=== PATIENT | female | born 1965 | race Caucasian/White ===

== ENCOUNTER 2022-04-29 14:48 | Emergency (ER) | payer OTHER, SELFPAY ==
--- NOTE | ~2022-04-29 | CT_ITS ---
EXAMINATION: CT HEAD WITHOUT CONTRAST CLINICAL INFORMATION: Headache. COMPARISON: None TECHNIQUE: Contiguous axial imaging was performed from the skull base to vertex without intravenous administration of contrast. This CT examination was performed using dose optimization techniques as appropriate, variously including the following: *Automated exposure control *Adjustment of mA and/or kV according to patient size (this includes techniques or standardized protocols for targeted exams where dose is matched to indication/reason for exam; i.e. extremities or head) *Use of iterative reconstruction technique DLP: 599 mGy-cm FINDINGS: There is no evidence of acute intracranial hemorrhage or territorial infarction. No abnormal mass-effect or midline shift is seen. Lau to white matter differentiation is well preserved. No extra axial fluid collections. The ventricles are normal in size and configuration. Dystrophic ossifications are noted in the basal ganglia. No additional abnormal attenuation within the brain parenchyma. The soft tissues and osseous structures are normal. The sinuses and mastoid air cells are clear. CT/CT head/brain wo IV con IMPRESSION: No acute intracranial pathology.
[2022-04-29 14:58] VITALS: BP 145/87; PULSE 88; RESP 16; TEMP 36.8; O2SAT 96; BMI 24.8
[2022-04-29 16:03] LABS: MANUAL DIFF FLAG NO
[2022-04-29 16:10] LABS: Basophils Percent Auto 0.3 % (0-2); Eosinophils Percent Auto 0.5 % (0-4); Hemoglobin 15.3 g/dl (12.0-16.0); Imm Gran Abs Auto 0.02 X10*3/uL (0.00-0.03); Imm Gran Pct Auto 0.3 % (0.0-0.4); Lymphocytes Absolute Auto 2.3 X10*3/uL (1.2-4.9); Lymphocytes Percent Auto 28.4 % (20-40); Mean Corpuscular Hemoglobin 29.3 pg (27.0-33.0); Mean Corpuscular Volume 86.2 fL (80.0-98.0); Mean Platelet Volume 9.9 fL (9.4-12.3); Monocytes Absolute Auto 0.5 X10*3/uL (0.1-1.2); Monocytes Percent Auto 6.1 % (2-11); Neutrophils Absolute Auto 5.2 x10*3/uL (2.0-8.3); Neutrophils Percent Auto 64.4 % (45-73); Platelet Count 255 X10*3/uL (160-400); Red Blood Count 5.22 X10*6/uL (4.20-5.50)
[2022-04-29 16:26] LABS: Anion Gap 14 (12-20); Blood Urea Nitrogen 25 mg/dL (9-16); Carbon Dioxide 25 mmol/L (22-29); Chloride 104 mmol/L (96-108); Creatinine Clr Calc Pharmacy 78.6; Estimated Glomerular Filt Rate > 60; Glucose Random 97 mg/dL (60-115); Potassium 4.1 mmol/L (3.3-5.1); Sodium 139 mmol/L (135-145)
[2022-04-29 16:29] VITALS: BP 142/92; PULSE 84; RESP 18; TEMP 36.8
--- NOTE | 2022-04-29 16:33 | ED.HA ---
HPI - Headache General Chief Complaint: Headache Stated Complaint: diabetic, bad headache. Time Seen by Provider: 04/29/22 16:32 Source: patient Mode of arrival: ambulatory Limitations: language barrier History of Present Illness HPI Narrative: 56-year-old female presents with unrelieved headache that is been present for approximately 2 months, but worsening since . States that she has nausea, and head pressure with dizziness. She does not report any trauma, or falls. Denies fevers, chills, loss of balance and weakness. MD elicited complaint: migraine Onset (ago): month(s) (2) Onset description: gradually Location: diffuse and generalized Severity: moderate Pain scale (0-10): 8 Quality & Timing: throbbing, constant, pressure, progressively worsening and similar to previous headaches Exacerbating factors: movement of head/neck, light and noise Relieving factors: nothing Associated symptoms: nausea, photophobia and sensitivity to sound Treatments prior to arrival: acetaminophen, ibuprofen and migraine medication ( [id number]) Related Data Previous Rx's Medication Instructions Recorded sumatriptan succinate 50 mg tablet See Rx Instructions PO .COMPLEX 04/29/22 (Imitrex) #12 tabs Allergies Allergy/AdvReac Type Severity Reaction Status Date / Time ceftriaxone [From Rocephin] Allergy Hives Verified 04/29/22 14:58 Review of Systems Review of Systems: Constitutional: No Fever, No Chills ENT/Mouth: No Ear Pain, No Hoarseness, No sore throat Eyes: No Eye Pain, No Swelling, No Redness, No Foreign Body Cardiovascular: No Chest Pain, No SOB Respiratory: No Cough, No Dyspnea Gastrointestinal: positive Nausea, No Vomiting, No Diarrhea, No abdominal Pain Genitourinary: No Dysuria, No Hematuria Musculoskeletal: No joint pain, No Myalgias, No Joint Swelling Skin: No Skin lacerations, No rash Neuro: positive Weakness, No Numbness, No Paresthesias, No Loss of Consciousness, positive Dizziness, positive Headache Yes all other systems are reviewed and are negative [facility] Past Medical History Attestation statement: The following information was validated with the patient. Source: old records reviewed Social History Social History Advance Directives: No Advance Directives Information Provided: No Physical Exam Vital Signs: Vital Signs: Last Vital Signs Temp 98.2 F 04/29/22 16:29 Pulse 84 04/29/22 16:29 Resp 18 04/29/22 16:29 BP 142/92 H 04/29/22 16:29 Pulse Ox 96 04/29/22 14:58 O2 Del Method 04/29/22 14:58 BMI result Body Mass Index 24.8 Appearance: Alert. Oriented X3. No acute distress. Eyes: Pupils equal, round and reactive to light. EOMI. Sclera nonicteric. No nystagmus. ENT: Pharynx normal. No mastoid tenderness. No nuchal rigidity. Full range of motion. No meningeal signs Neck: Normal inspection. Neck supple. CVS: Normal heart rate and rhythm. Pulses normal. Respiratory: No respiratory distress. Breath sounds normal. Abdomen: Soft and nontender. Skin: Skin warm and dry. Normal skin color. Normal skin turgor. Extremities: No lower extremity edema. moves all extremities against resistance. Gait well-balanced well coordinated. Neuro: No motor deficit. No sensory deficit. Cranial nerves 2-12 intact. Course Course Course Narrative: 56-year-old female presents with 2 months of headache, intermittent dizziness, weakness, photosensitivity, blurred vision and forehead pressure. States that she has been taking [id number] medications for migraines, Tylenol and Motrin with poor effect. Starting the pain is worsened with nausea. Patient has an allergy to Fioricet, has been treated for migraines in the past, and this headache feels similar to prior. NIH stroke scale is 0, Roberto Carlos coma Scale 15. No meningeal signs, appears nontoxic and is afebrile. Will try migraine regimen with Toradol, fluids, Reglan, Benadryl, and IM sumatriptan 18:58 patient states to have significant relief from the migraine medications. Plan of care is to discharge home. Negative for acute findings. She does understand that she must follow-up with primary care physician for further treatment for migraines. home advisor utilized for all correspondence. Google translate utilized for discharge instructions. Patient verbalized understanding of and agrees plan of care discharge home. Verbalized understanding signs symptoms indicating need for emergent intervention. Medications Administered Discontinued Medications Generic Name Dose Route Start Last Admin Trade Name Freq PRN Reason Stop Dose Admin Diphenhydramine HCl 25 mg 04/29/22 16:52 04/29/22 17:15 Diphenhydramine Hcl 50 Mg/Ml Vial IVPUSH 04/29/22 16:53 25 mg ONCE ONE Administration Sodium Chloride 1,000 mls @ 999 mls/hr 04/29/22 16:45 04/29/22 17:04 Ns IVCONT 04/29/22 17:45 999 mls/hr .Q1H1M LOWELL Administration Ketorolac Tromethamine 15 mg 04/29/22 16:52 04/29/22 17:17 Ketorolac Tromethamine 15 Mg/Ml Vial IVPUSH 04/29/22 16:53 15 mg ONCE ONE Administration Metoclopramide HCl 10 mg 04/29/22 16:52 04/29/22 17:16 Metoclopramide Hcl 10 Mg/2 Ml Vial IVPUSH 04/29/22 16:53 10 mg ONCE ONE Administration Sumatriptan Succinate 6 mg 04/29/22 16:52 04/29/22 17:18 Sumatriptan Succinate 6 Mg/0.5 Ml Vial SUBCUT 04/29/22 16:53 6 mg ONCE ONE Administration Medical Decision Making Differential Diagnosis Differential Diagnoses: The differential diagnosis associated with the presentation includes CVA, subdural, migraine, tension headache, sinusitis Lab Data MDM Lab Attestation statement: I reviewed the patient's lab results. 04/29/22 15:59 04/29/22 15:59 Labs: Lab Results 04/29/22 04/29/22 04/29/22 Range/Units 15:59 15:59 17:12 WBC 8.0 (4.8-10.8) X10*3/uL RBC 5.22 (4.20-5.50) X10*6/uL Hgb 15.3 (12.0-16.0) g/dl Hct 45.0 (37.0-47.0) % MCV 86.2 (80.0-98.0) fL MCH 29.3 (27.0-33.0) pg MCHC 34.0 (31.0-35.0) g/dl RDW 12.0 (11.0-16.0) % Plt Count 255 (160-400) X10*3/uL MPV 9.9 (9.4-12.3) fL Immature Gran % (Auto) 0.3 (0.0-0.4) % Neut % (Auto) 64.4 (45-73) % Lymph % (Auto) 28.4 (20-40) % [place] % (Auto) 6.1 (2-11) % Eos % (Auto) 0.5 (0-4) % Baso % (Auto) 0.3 (0-2) % Lymph # (Auto) 2.3 (1.2-4.9) X10*3/uL [place] # (Auto) 0.5 (0.1-1.2) X10*3/uL Eos # (Auto) 0.0 (0.0-0.4) X10*3/uL Baso # (Auto) 0.0 (0.0-0.2) X10*3/uL Abs Immat Gran (auto) 0.02 (0.00-0.03) X10*3/uL Absolute Neuts (auto) 5.2 (2.0-8.3) x10*3/uL Absolute Nucleated RBC 0.000 (0.0-0.012) X10*3/uL Nucleated RBC % (auto) 0.0 (0.0-0.2) /100WBC Sodium 139 (135-145) mmol/L Potassium 4.1 (3.3-5.1) mmol/L Chloride 104 (96-108) mmol/L Carbon Dioxide 25 (22-29) mmol/L Anion Gap 14 (12-20) BUN 25 H (9-16) mg/dL Creatinine 0.69 (0.5-1.4) mg/dL Estim Creat Clear Calc 78.6 Estimated GFR > 60 Random Glucose 97 (60-115) mg/dL Calcium 10.0 (8.4-10.2) mg/dL Urine Color Yellow Urine Appearance Clear Urine pH 5.5 (5.0-9.0) Ur Specific [place] >= 1.030 H (1.005-1.025) Urine Protein Negative (Neg-Trace) mg/dL Urine Glucose (UA) >=1000 H (Negative) mg/dL Urine Ketones 15 (Negative) mg/dL Urine Blood Negative (Negative) Urine Nitrite Negative (Negative) Ur Leukocyte Esterase Negative (Negative) Urine RBC 0-2 (0-2) /HPF Urine WBC 0-5 (0-5) /HPF Ur Squamous Epith Cells 3-5 (0-2) /HPF Urine Bacteria None Seen (None Seen) Hyaline Casts 0-2 (0-2) /LPF Influenza Type A (PCR) (Negative) Influenza Type B (PCR) (Negative) RSV RNA Qual (PCR) (Negative) SARS-CoV-2 RNA (RT-PCR) (Negative) 04/29/22 Range/Units 17:13 WBC (4.8-10.8) X10*3/uL RBC (4.20-5.50) X10*6/uL Hgb (12.0-16.0) g/dl Hct (37.0-47.0) % MCV (80.0-98.0) fL MCH (27.0-33.0) pg MCHC (31.0-35.0) g/dl RDW (11.0-16.0) % Plt Count (160-400) X10*3/uL MPV (9.4-12.3) fL Immature Gran % (Auto) (0.0-0.4) % Neut % (Auto) (45-73) % Lymph % (Auto) (20-40) % [place] % (Auto) (2-11) % Eos % (Auto) (0-4) % Baso % (Auto) (0-2) % Lymph # (Auto) (1.2-4.9) X10*3/uL [place] # (Auto) (0.1-1.2) X10*3/uL Eos # (Auto) (0.0-0.4) X10*3/uL Baso # (Auto) (0.0-0.2) X10*3/uL Abs Immat Gran (auto) (0.00-0.03) X10*3/uL Absolute Neuts (auto) (2.0-8.3) x10*3/uL Absolute Nucleated RBC (0.0-0.012) X10*3/uL Nucleated RBC % (auto) (0.0-0.2) /100WBC Sodium (135-145) mmol/L Potassium (3.3-5.1) mmol/L Chloride (96-108) mmol/L Carbon Dioxide (22-29) mmol/L Anion Gap (12-20) BUN (9-16) mg/dL Creatinine (0.5-1.4) mg/dL Estim Creat Clear Calc Estimated GFR Random Glucose (60-115) mg/dL Calcium (8.4-10.2) mg/dL Urine Color Urine Appearance Urine pH (5.0-9.0) Ur Specific [place] (1.005-1.025) Urine Protein (Neg-Trace) mg/dL Urine Glucose (UA) (Negative) mg/dL Urine Ketones (Negative) mg/dL Urine Blood (Negative) Urine Nitrite (Negative) Ur Leukocyte Esterase (Negative) Urine RBC (0-2) /HPF Urine WBC (0-5) /HPF Ur Squamous Epith Cells (0-2) /HPF Urine Bacteria (None Seen) Hyaline Casts (0-2) /LPF Influenza Type A (PCR) NEGATIVE (Negative) Influenza Type B (PCR) NEGATIVE (Negative) RSV RNA Qual (PCR) NEGATIVE (Negative) SARS-CoV-2 RNA (RT-PCR) NEGATIVE (Negative) Independent Interpretation I performed an independent interpretation of an: CT Scan Radiology Impression Discussion of test interpretation with radiology: I have reviewed the radiologist's reading. Radiologist Impression: EXAMINATION: CT HEAD WITHOUT CONTRAST CLINICAL INFORMATION: Headache.? COMPARISON: None TECHNIQUE: Contiguous axial imaging was performed from the skull base to vertex without intravenous administration of contrast. This CT examination was performed using dose optimization techniques as appropriate, variously including the following: *Automated exposure control *Adjustment of mA and/or kV according to patient size (this includes techniques or standardized protocols for targeted exams where dose is matched to indication/reason for exam; i.e. extremities or head) *Use of iterative reconstruction technique DLP: 599 mGy-cm FINDINGS: There is no evidence of acute intracranial hemorrhage or territorial infarction. No abnormal mass-effect or midline shift is seen. Lau to white matter differentiation is well preserved. No extra axial fluid collections. The ventricles are normal in size and configuration.? Dystrophic ossifications are noted in the basal ganglia. No additional abnormal attenuation within the brain parenchyma. The soft tissues and osseous structures are normal.? The sinuses and mastoid air cells are clear. CT/CT head/brain wo IV con IMPRESSION: No acute intracranial pathology. Independent Historian Clinical information obtained from an independent historian. History obtained from or confirmed by: Friend External Record Review External record reviewed: Outpatient record Prescription Management I considered prescription management with: Pain Medication Discharge Plan Discharge Clinical Impression: Migraine Patient Disposition: Home, Self-Care Instructions: Migraine Headache (ED) Additional Instructions: Usted fue evaluado por becka migra?a. Hyder sumatript?n seg?n las indicaciones. Seguimiento con el m?dico de atenci?n primaria para el estudio de la migra?a. La tomograf?a computarizada de la roger es negativa para hallazgos agudos que requieren becka intervenci?n urgente Natan por elegir edgard departamento de emergencias para rice evaluaci?n. Por favor, tamy un seguimiento con el m?dico de atenci?n primaria seg?n sea necesario. Regrese al departamento de emergencias por cualquier s?ntoma nuevo, preocupante o que empeore. You were evaluated for A migraine headache. Please take sumatriptan as directed. Follow-up with primary care physician for migraine workup. CT scan of the head is negative for acute findings requiring emergent intervention Thank you for choosing this emergency department for evaluation. Please follow-up with primary care physician as needed. Return to the emergency department for any new, concerning, or worsening symptoms. Prescriptions: New sumatriptan succinate [Imitrex] 50 mg tablet See Rx Instructions .ROUTE .COMPLEX Qty: 12 0RF Rx Instructions: take 1 tab at onset of headache; if no relief may repeat 1 tab after at least 2 hrs; max = 4 tabs/24 hr Referrals: Alia Hammond MD [Primary Care Provider] - 2 weeks ( migraine headaches)
[2022-04-29] MEDS: 0.9 % Sodium Chloride 1,000 ML 999 ML IVCONT (17:04)
[2022-04-29] MEDS: diphenhydrAMINE HCL 50 MG/ML VIAL 25 MG IVPUSH (17:15)
[2022-04-29] MEDS: Metoclopramide HCl 10 MG/2 ML VIAL IVPUSH (17:16)
[2022-04-29] MEDS: Ketorolac Tromethamine 15 MG/ML VIAL IVPUSH (17:17)
[2022-04-29] MEDS: SUMAtriptan succinate 6 MG/0.5 ML VIAL SUBCUT (17:18)
[2022-04-29 17:21] LABS: Appearance Urine Clear; Color Urine Yellow; Glucose Urine UA >=1000 mg/dL (Negative); Leukocyte Esterase Urine Negative (Negative); Nitrite Urine Negative (Negative); PH 5.5 (5.0-9.0); Specific Gravity - Urine >= 1.030 (1.005-1.025); UMIC TRIGGER UACC YES; Urine Blood Negative (Negative); Urine Ketones 15 mg/dL (Negative); Urine Protein Negative (Neg-Trace)
[2022-04-29 18:00] LABS: Influenza A PCR NEGATIVE (Negative); Influenza B PCR NEGATIVE (Negative); Resp Syncy Virus RNA Qual PCR NEGATIVE (Negative); SARS COV2 PCR INHOUSE NEGATIVE (Negative)
[2022-04-29 18:12] LABS: Bacteria Urine None Seen (None Seen); Hyaline Casts Urine 0-2 /LPF (0-2); RBC Urine 0-2 /HPF (0-2); WBC Urine 0-5 /HPF (0-5)
== END 2022-04-29 19:25 | disposition home or self-care (01) ==
PROVIDERS: Nurse Practitioner Family; Emergency Provider Internal Medicine; PCP Internal Medicine
DX: G43.909 Migraine, unspecified, not intractable, without status migrainosus (principal); Z20.822 Contact with and (suspected) exposure to COVID-19; Z20.828 Contact with and (suspected) exposure to other viral communicable diseases; Z79.899 Other long term (current) drug therapy
CPT/HCPCS: 0241U; 36415; 70450; 80048; 81001; 85025; 99284; J1200; J1885; J2765; J3030